=== PATIENT | male | born 1975 | race Caucasian/White ===

== ENCOUNTER 2018-05-05 12:36 | Emergency (ER) | payer BC ==
[2018-05-05 13:12] VITALS: BP 138/93; PULSE 68; RESP 18; TEMP 98
[2018-05-05] MEDS ORDERED: PROPARACAINE 0.5% OPHTH DROPS 15 ML BTL BOTH EYES STA (13:30)
[2018-05-05] MEDS ORDERED: ERYTHROMYCIN 5 MG/GM OPHTH OINT 3.5 GM TUBE LEFT EYE STA (13:54)
--- NOTE | 2018-05-05 14:27 | ED ---
General Adult HPI - General Chief complaint: ENT Stated complaint: metal in eye Time Seen by Provider: 05/05/18 13:30 Source: patient, RN notes reviewed Mode of arrival: ambulatory Limitations: no limitations - History of Present Illness Initial comments: 42-year-old male presents to the emergency department for a chief complaint of left corneal foreign body 2 hours. Patient states he was working on his car rim when he felt something go into his eye. Patient states he believes it is a piece of metal. Patient states this has happened to him 6 times previously so he knew to come to the emergency department. He denies any visual changes. He does admit to pain in the left eye. Patient states his tetanus is up-to-date as of 4 years ago. Patient denies any other injuries. He denies any fevers or chills. Patient denies any headache. Patient has no other complaints at this time including shortness of breath, chest pain, abdominal pain, nausea or vomiting, headache, or visual changes. - Related Data Previous Rx's Medication Instructions Recorded Erythromycin Ophth Oint [Romycin 1 applic LEFT EYE QID 7 Days gm 05/05/18 Ophth Oint] Allergies Allergy/AdvReac Type Severity Reaction Status Date / Time No Known Allergies Allergy Verified 05/05/18 13:10 Review of Systems ROS Statement: Those systems with pertinent positive or pertinent negative responses have been documented in the HPI. ROS Other: All systems not noted in ROS Statement are negative. Past Medical History Past Medical History: No Reported History History of Any Multi-Drug Resistant Organisms: None Reported Past Surgical History: Orthopedic Surgery Additional Past Surgical History / Comment(s): L shoulder Past Psychological History: No Psychological Hx Reported Smoking Status: Former smoker Past Alcohol Use History: Occasional Past Drug Use History: None Reported General Exam Limitations: no limitations General appearance: alert, in no apparent distress Head exam: Present: atraumatic, normocephalic, normal inspection Eye exam: Present: normal appearance, PERRL, EOMI, conjunctival injection (Left conjunctival injection), other (There is a small corneal foreign body in Center of eye. No rust ring. The eye was stained with fluorescein stain, negative Cira sign. ). Absent: scleral icterus, periorbital swelling Expanded Eyelids: Normal Inspection: Left (Eyelids were flipped and no evidence of foreign body) Pupils: Regular, Round: Bilateral, Reactive: Bilateral Sclera/Conjunctival: Normal Inspection: Left, Injection: Left (Mild erythema) Anterior chamber: Normal Inspection: Left IOP (R) in mmH IOP (L) in mmH IOP measured with: Tonopen ENT exam: Present: normal exam, mucous membranes moist Neck exam: Present: normal inspection, full ROM. Absent: tenderness, meningismus, lymphadenopathy Respiratory exam: Present: normal lung sounds bilaterally. Absent: respiratory distress, wheezes, rales, rhonchi, stridor Cardiovascular Exam: Present: regular rate, normal rhythm, normal heart sounds. Absent: systolic murmur, diastolic murmur, rubs, gallop, clicks Course Vital Signs 05/05/18 13:10 Temperature 98 F Pulse Rate 68 Respiratory 18 Rate Blood Pressure 138/93 O2 Sat by Pulse 98 Oximetry Medical Decision Making - Medical Decision Making 42-year-old male presents to the emergency department for a chief complaint of corneal foreign body in the left eye. Patient is up-to-date on tetanus. He shouldn't denies visual changes. Visual acuity intact. On exam there is a small corneal foreign body noted in the center of the eye. Eye was numbed with proparacaine which instantly relieved pain. Foreign body was removed with 18- gauge needle after attempting to remove with a Q-tip without success. Foreign body was removed with needle without any difficulty. No rust ring evident. Eye was then flushed with saline. It was then stained with fluorescein and there is very small abrasion where the foreign body was previously lodged. No Cira sign. Pressure is equal and within normal limits bilaterally. Erythromycin was applied to the eye. Patient was given follow-up to ophthalmology. He is feeling much better at this time. He will return if he has any worsening symptoms. Discussed with Dr. Lord Disposition Clinical Impression: Corneal foreign body Disposition: HOME SELF-CARE Condition: Good Instructions: Eye Foreign Body (ED) Additional Instructions: Please use antibiotic as directed. Please follow-up with ophthalmology in one to 2 days. Please return immediately to the emergency department if you have any worsening symptoms. Prescriptions: Erythromycin Ophth Oint [Romycin Ophth Oint] 1 applic LEFT EYE QID 7 Days gm Is patient prescribed a controlled substance at d/c from ED?: No Referrals: Otis Finnegan MD [STAFF PHYSICIAN] - 1-2 days Time of Disposition: 14:18
== END 2018-05-05 14:52 | disposition home or self-care (01) ==
LOC: EC 12:36
DX: T15.02XA Foreign body in cornea, left eye, initial encounter (principal); Z87.891 Personal history of nicotine dependence; Y93.89 Activity, other specified
CPT/HCPCS: 65220; 99283